=== PATIENT | female | born 1985 | race Caucasian/White ===

== ENCOUNTER 2019-09-26 15:51 | Emergency (ER) | payer OTHER ==
[~2019-09-26] VITALS: Ht 175.3 cm; Wt 72.7 kg
[2019-09-26 15:56] VITALS: BP 155/93; TEMP 97.8
[2019-09-26 17:27] VITALS: PULSE 60
== END 2019-09-26 17:32 | disposition home or self-care (01) ==
LOC: COL.ER 15:51
DX: M79.605 Pain in left leg (principal)

== ENCOUNTER → 2019-09-27 | Outpatient (CLI) | payer OTHER | LOC: COL.RAD 08:28 | DX: M79.662 Pain in left lower leg (principal) ==